=== PATIENT | male | born 1975 | race Caucasian/White ===

== ENCOUNTER 2021-02-10 11:57 | Emergency (ER) | payer SELFPAY ==
[2021-02-11 00:36] LABS: SARS-CoV-2 PCR by NAA Not Detected (NotDetected)
== END 2021-02-10 13:09 | disposition home or self-care (01) ==
LOC: MADERS 11:57
DX: B34.9 Viral infection, unspecified (principal); F17.210 Nicotine dependence, cigarettes, uncomplicated; Z20.822 Contact with and (suspected) exposure to COVID-19
CPT/HCPCS: 87804; 99283; U0003; U0005